=== PATIENT | female | born 2000 ===

== ENCOUNTER 2020-01-23 14:51 | Emergency (ER) | payer OTHER, SELFPAY ==
[2020-01-23 15:05] VITALS: BP 103/56; PULSE 93; RESP 18; TEMP 37; O2SAT 99
--- NOTE | 2020-01-23 15:21 | ED_ITS ---
HPI - Alcohol General Chief Complaint: Toxicology Problem Stated Complaint: Thinks Alcohol Poisoning, Poss Broken Nose Time Seen by Provider: 01/23/20 15:13 Source: patient Mode of arrival: Ambulatory Limitations: no limitations History of Present Illness HPI narrative: 1-year-old female nonsmoker without contributory medical history presents with a chief complaint of nausea epigastric pain and feeling generally unwell since drinking a significant amount alcohol last evening. She has had multiple episodes of vomiting over the course of the day and has been able to keep little down. She denies fever or chills. She has had no change in bowel habits. MD complaint: alcohol intoxication Last drink: hours (ago) Chronic alcohol use: No Previous visits for alcohol intoxication: No Recent trauma: No Associated symptoms: nausea, vomiting and abdominal pain Treatments prior to arrival: none Related Data Allergies Allergy/AdvReac Type Severity Reaction Status Date / Time No Known Drug Allergies Allergy Verified 01/23/20 15:08 Review of Systems Constitutional Constitutional: Denies chills, Denies fatigue, Denies fever(s), Denies frequent falls, Denies lethargy and Denies weakness Eyes Eyes: Denies change in vision, Denies eye discharge, Denies irritation and Denies loss of vision ENT Ears, Nose, Mouth, and Throat: Denies change in voice, Denies dizziness, Denies neck pain, Denies sore throat and Denies throat swelling Cardiovascular Cardiovascular: Denies chest pain, Denies irregular heart rhythm, Denies li ghtheadedness, Denies palpitations, Denies dyspnea, Denies dyspnea on exertion and Denies orthopnea Respiratory Respiratory: Denies cough, Denies dyspnea, Denies dyspnea on exertion and Denies wheezing Gastrointestinal Gastrointestinal: Reports abdominal pain, Denies change in bowel habits, Denies diarrhea, Reports nausea and Reports vomiting Genitourinary Genitourinary: Denies hematuria, Denies flank pain, Denies urinary incontinence and Denies urinary urgency Musculoskeletal Musculoskeletal: Denies back pain, Denies muscle weakness, Denies neck pain, Denies numbness and Denies tingling Integumentary/Breasts Skin/Breast: Denies pruritus, Denies erythema, Denies rash and Denies wounds Neurologic Neurologic: Denies behavioral changes, Denies confusion, Denies dizziness, Denies frequent falls, Denies loss of vision, Denies numbness, Denies tingling and Denies weakness Psychiatric Psychiatric: Denies anxiety, Denies behavioral changes, Denies confusion, Denies depression, Denies homicidal ideation and Denies suicidal ideation Endocrine Endocrine: Denies fatigue, Denies flushing and Denies palpitations Hematologic/Lymphatic Hematologic/Lymphatic: Denies easy bruising Allergic/Immunologic Allergic/Immunologic: Denies urticaria, Denies throat swelling and Denies wheez ing Patient History Social History Smoking Status: Never smoker Smoking Status: Never smoker Exam Narrative Exam Narrative: GENERAL: [19] year old patient appears stated age. Well- nourished, well-developed patient, in mild distress. HEAD: Atraumatic. Normocephalic. EYES: Pupils equal round and reactive. Extraocular motions intact. No scleral icterus. No injection or drainage. ENT: Nose without bleeding, purulent drainage. Throat without erythema, tonsillar hypertrophy or exudate. Airway patent. NECK: Trachea midline. Non tender CARDIOVASCULAR: Regular rate and rhythm without murmurs, gallops, or rubs. RESPIRATORY: Clear to auscultation. Breath sounds equal bilaterally. No wheezes, rales, or rhonchi. GASTROINTESTINAL: Abdomen soft, mild epigastric tenderness, nondistended. EXTREMITIES: No edema or joint tenderness. BACK: Nontender without deformity or crepitance. No flank tenderness. NEURO: AOx3. SKIN: No rash or erythema of visible areas Initial Vital Signs Initial Vital Signs: Vital Signs Temperature 98.6 F 01/23/20 15:05 Pulse Rate 93 H 01/23/20 15:05 Respiratory Rate 18 01/23/20 15:05 Blood Pressure 103/56 L 01/23/20 15:05 Pulse Oximetry 99 01/23/20 15:05 Course Orders Ordered: ED Orders 01/23/20 15:30 Alkaline Phosphatase Stat Aspartate Aminotransferase Stat Basic Metabolic Panel Stat Bilirubin Total Stat Complete Blood Count AUTO DIFF Stat Ethanol (ETOH) Stat Ketones (Beta-Hydroxybutyrate) Stat Lipase Stat 01/23/20 17:48 Basic Metabolic Panel Stat 01/23/20 18:43 Urine Drug Screen, Rapid Stat Ondansetron HCl (Zofran) 4 mg IV Q4HR PRN PRN Reason: Nausea And Vomiting Discontinued Medications Al Hydrox/Mg Hydrox/Simethicone 20 ml/ Lidocaine HCl 15 ml 0 ml PO NOW ONE Stop: 01/23/20 19:22 Last Admin: 01/23/20 19:55 Dose: 35 ml Documented by: GREG Sodium Chloride (Normal Saline 0.9%) 1,000 mls @ 1,000 mls/hr IV BOLUS ONE Stop: 01/23/20 16:20 Last Infusion: 01/23/20 17:26 Dose: 0 mls/hr Documented by: Admin: 01/23/20 16:19 Dose: 1,000 mls/hr Documented by: DREW Ketorolac Tromethamine (Toradol) 15 mg IV NOW ONE Stop: 01/23/20 18:03 Last Admin: 01/23/20 18:07 Dose: 15 mg Documented by: DREW Pantoprazole Sodium (Protonix) 40 mg IV NOW ONE Stop: 01/23/20 15:22 Last Admin: 01/23/20 16:19 Dose: 40 mg Documented by: DREW Vital Signs Vital signs: Vital Signs - 8 hr 01/23/20 15:05 Temperature 98.6 F Pulse Rate 93 H Respiratory Rate 18 Blood Pressure 103/56 L Pulse Oximetry 99 MDM - Alcohol Lab Data Result diagrams: 01/23/20 15:30 01/23/20 17:48 Labs: Lab Results 01/23/20 01/23/20 01/23/20 Range/Units 15:30 15:30 15:30 WBC 9.4 (4.5-11.0) X10^3/uL RBC 5.15 (4.0-5.2) X10^6/uL Hgb 15.7 (12.0-16.0) g/dL Hct 46.3 H (36-46) % MCV 89.9 (80-100) fL MCH 30.4 (26-34) PG MCHC 33.8 (30-36) % RDW 13.2 (11.6-14.8) % Plt Count 203 (150-400) X10^3/uL Neut % (Auto) 78.4 H (50-75) % Lymph % (Auto) 17.5 L (25-40) % [place] % (Auto) 3.8 (3-14) % Eos % (Auto) 0.0 L (2-4) % Baso % (Auto) 0.3 (0-2) % Neut # (Auto) 7400 H (4793-8064) /uL Lymph # (Auto) 1600 (0122-1901) /uL [place] # (Auto) 400 (0-900) /uL Eos # (Auto) 0 (0-450) /uL Baso # (Auto) 0 (0-100) /uL Sodium 141 (137-145) mmol/L Potassium 4.0 (3.4-5.1) mmol/L Chloride 103 (98-107) mmol/L Carbon Dioxide 20 L (22-32) mmol/L BUN 13 (7-17) mg/dL Creatinine 0.60 (0.52-1.04) mg/dL Estimated GFR > 60.0 (>60) mL/min BUN/Creatinine Ratio 21.7 (6-22) Glucose 106 H (70-100) mg/dL Calcium 9.7 (8.4-10.2) mg/dL Total Bilirubin 0.5 (0.2-1.3) mg/dL AST 40 H (14-36) IU/L Alkaline Phosphatase 62 (38-126) U/L Lipase 45 (23-300) U/L U Opiates 300ng/mL cut (Negative) Ur Oxycodone Screen (Negative) Urine Methadone Screen (Negative) Ur Barbiturates Screen (Negative) U Tricyclic Antidepress (Negative) Ur Phencyclidine Scrn (Negative) Ur Amphetamines Screen (Negative) U Methamphetamines Scrn (Negative) Ur MDMA Scrn (Ecstasy) (Negative) U Benzodiazepines Scrn (Negative) Urine Cocaine Screen (Negative) U Marijuana (THC) Screen (Negative) Ethyl Alcohol 18 H ( - 10) mg/dL Ketones (<0.27) mmol/L 01/23/20 01/23/20 01/23/20 Range/Units 15:30 17:48 18:43 WBC (4.5-11.0) X10^3/uL RBC (4.0-5.2) X10^6/uL Hgb (12.0-16.0) g/dL Hct (36-46) % MCV (80-100) fL MCH (26-34) PG MCHC (30-36) % RDW (11.6-14.8) % Plt Count (150-400) X10^3/uL Neut % (Auto) (50-75) % Lymph % (Auto) (25-40) % [place] % (Auto) (3-14) % Eos % (Auto) (2-4) % Baso % (Auto) (0-2) % Neut # (Auto) (3331-7854) /uL Lymph # (Auto) (8991-7732) /uL [place] # (Auto) (0-900) /uL Eos # (Auto) (0-450) /uL Baso # (Auto) (0-100) /uL Sodium 141 (137-145) mmol/L Potassium 4.2 (3.4-5.1) mmol/L Chloride 110 H (98-107) mmol/L Carbon Dioxide 21 L (22-32) mmol/L BUN 13 (7-17) mg/dL Creatinine 0.50 L (0.52-1.04) mg/dL Estimated GFR > 60.0 (>60) mL/min BUN/Creatinine Ratio 26.0 H (6-22) Glucose 92 (70-100) mg/dL Calcium 8.0 L (8.4-10.2) mg/dL Total Bilirubin (0.2-1.3) mg/dL AST (14-36) IU/L Alkaline Phosphatase (38-126) U/L Lipase (23-300) U/L U Opiates 300ng/mL cut Negative (Negative) Ur Oxycodone Screen Negative (Negative) Urine Methadone Screen Negative (Negative) Ur Barbiturates Screen Negative (Negative) U Tricyclic Antidepress Negative (Negative) Ur Phencyclidine Scrn Negative (Negative) Ur Amphetamines Screen Negative (Negative) U Methamphetamines Scrn Negative (Negative) Ur MDMA Scrn (Ecstasy) Negative (Negative) U Benzodiazepines Scrn Negative (Negative) Urine Cocaine Screen Negative (Negative) U Marijuana (THC) Screen Negative (Negative) Ethyl Alcohol ( - 10) mg/dL Ketones 0.32 H (<0.27) mmol/L Point of Care Testing Test Results Negative Urine Dip Bedside Urine Glucose Negative Bedside Urine Bilirubin - Negative Bedside Urine Ketone +++ 80 Urine Specific [place] 1.025 Bedside Urine Occult Blood - Negative Bedside Urine pH 6.5 Bedside Urine Protein +/- 15 Bedside Urine Urobilinogen - Negative Bedside Urine Nitrite - Negative Bedside Urine Leukocytes - Negative Esterase MDM Narrative Medical decision making narrative: 19-year-old female presents feeling unwell after drinking a significant amount of alcohol last night. Pancreatitis and biliary disease considered but thought less likely given lack of laboratory findings. Gastritis considered to be most likely cause of her epigastric pain and improves with Protonix and GI cocktail. Additionally patient has an anion gap acidosis likely a consequence of her heavy alcohol. This greatly improves after 2 L of fluid, 3rd L of fluid makes her feel tremendous relief and she is ready for discharge. She has been given return precautions and understands the plan for discharge. Questions have been answered to her apparent satisfaction. Discharge Plan Departure Patient Disposition: Home Clinical Impression: Alcoholic intoxication Qualifiers: Complication of substance-induced condition: uncomplicated Qualified Code(s): F10.920 - Alcohol use, unspecified with intoxication, uncomplicated Instructions: DI for Alcohol Abuse, DI for Alcohol Poisoning, DI for Alcoholic Gastritis Activity Restrictions/Additional Instructions: *You have been diagnosed with [alcoholic gastritis, alcohol intoxication] *What to do: *Take medications as directed *Follow up with your primary care provider in 2-3 days, call for an appointment. Let them know you were seen in the Emergency Department and that we ask that you be seen in follow up *Return to ER if you should have any new, worsening or concerning symptoms
[2020-01-23 15:36] LABS: Add Manual Diff / Slide Review NO; Basophils Absolute Auto 0 /uL (0-100); Basophils Percent Auto 0.3 % (0-2); Eosinophils Absolute Auto 0 /uL (0-450); Hematocrit 46.3 % (36-46); Hemoglobin 15.7 g/dL (12.0-16.0); Lymphocytes Absolute Auto 1600 /uL (1100-4500); Lymphocytes Percent Auto 17.5 % (25-40); Mean Corpuscular HGB Conc 33.8 % (30-36); Mean Corpuscular Hemoglobin 30.4 PG (26-34); Mean Corpuscular Volume 89.9 fL (80-100); Monocytes Absolute Auto 400 /uL (0-900); Monocytes Percent Auto 3.8 % (3-14); Neutrophils Absolute Auto 7400 /uL (1500-7000); Neutrophils Percent Auto 78.4 % (50-75); Platelet Count 203 X10^3/uL (150-400); Red Blood Cell Count 5.15 X10^6/uL (4.0-5.2); Red Cell Distribution Width 13.2 % (11.6-14.8); White Blood Cell Count 9.4 X10^3/uL (4.5-11.0)
[2020-01-23 15:48] LABS: BUN Creatinine Ratio 21.7 (6-22); Blood Urea Nitrogen 13 mg/dL (7-17); Calcium 9.7 mg/dL (8.4-10.2); Carbon Dioxide 20 mmol/L (22-32); Chloride 103 mmol/L (98-107); Estimated Glomerular Filt Rate > 60.0 mL/min (>60); Ethanol (ETOH) 18 mg/dL; Glucose 106 mg/dL (70-100); HEMOLYSIS < 15 (0-50); Sodium 141 mmol/L (137-145)
[2020-01-23] MEDS: ONDANSETRON 4 MG/2 ML INJ (16:18)
[2020-01-23] MEDS: PANTOPRAZOLE 40 MG VIAL IV (16:19)
[2020-01-23] MEDS: SODIUM CHLORIDE 0.9% 1,000 ML 1000 ML IV (16:19)
[2020-01-23 17:30] LABS: Alkaline Phosphatase 62 U/L (38-126); Aspartate Aminotransferase 40 IU/L (14-36); Bilirubin Total 0.5 mg/dL (0.2-1.3); Lipase 45 U/L (23-300)
[2020-01-23 17:33] LABS: Ketones (Beta-Hydroxybutyrate) 0.32 mmol/L (<0.27)
[2020-01-23 18:04] LABS: Blood Urea Nitrogen 13 mg/dL (7-17); Carbon Dioxide 21 mmol/L (22-32); Chloride 110 mmol/L (98-107); Estimated Glomerular Filt Rate > 60.0 mL/min (>60); Glucose 92 mg/dL (70-100); HEMOLYSIS < 15 (0-50); Potassium 4.2 mmol/L (3.4-5.1); Sodium 141 mmol/L (137-145)
[2020-01-23] MEDS: KETOROLAC 60 MG/2 ML VIAL 15 MG IV (18:07)
[2020-01-23 19:02] LABS: UR Morphine/Opiate cutoff 300 Negative (Negative); Ur Creatinine Normal (Normal); Ur Specific Gravity Normal (Normal); Urine Amphetamines Negative (Negative); Urine Barbiturates Negative (Negative); Urine Benzodiazepines Negative (Negative); Urine Cocaine Negative (Negative); Urine MDMA Negative (Negative); Urine Methadone Negative (Negative); Urine Methamphetamines Negative (Negative); Urine Oxycodone Negative (Negative); Urine Phencyclidine Negative (Negative); Urine Tetrahydrocannabinol Negative (Negative); Urine Tricyclic Antidepressant Negative (Negative); Urine pH Normal (Normal)
[2020-01-23] MEDS: MAG HYDROX/ALUMINUM/SIMETH SUS 20 ML, LIDOCAINE VISCOUS 2% 15 ML PO (19:55)
[2020-01-23 20:55] VITALS: BP 118/76; PULSE 79; RESP 16; TEMP 36.6; O2SAT 99
== END 2020-01-23 20:55 | disposition home or self-care (01) ==
PROVIDERS: Emergency Provider Emergency Medicine
DX: R11.2 Nausea with vomiting, unspecified (principal); R10.13 Epigastric pain; F10.920 Alcohol use, unspecified with intoxication, uncomplicated
CPT/HCPCS: 36415; 80048; 80305; 80320; 81003; 81025; 82009; 82247; 83690; 84075; 84450; 85025; 96361; 96374; 96375; 99284; C9113; J1885; J2405

== ENCOUNTER 2020-09-27 06:14 | Emergency (ER) | payer OTHER, SELFPAY ==
[2020-09-27 06:25] VITALS: BP 116/60; PULSE 119; RESP 18; TEMP 36.4; O2SAT 98; BMI 25.4
[2020-09-27 07:06] LABS: Appearance Urine UA SL CLOUDY; Bilirubin Urine UA NEGATIVE (NEGATIVE); Color Urine UA YELLOW; Glucose Urine UA NEGATIVE (Negative); Ketones Urine UA NEGATIVE (NEGATIVE); Leukocyte Esterase Urine UA TRACE (NEGATIVE); Nitrite Urine UA NEGATIVE (Negative); Occult Blood Urine UA 3+ (Negative); Protein Urine UA TRACE (Negative); Urobilinogen Urine UA 0.2 E.U./dL (0.2)
--- NOTE | 2020-09-27 07:31 | ED_ITS ---
HPI - Female Genitourinary General Chief complaint: Urogenital-Female Stated complaint: Pain in vagina Time Seen by Provider: 09/27/20 06:46 Source: patient Mode of arrival: Ambulatory Limitations: no limitations History of Present Illness HPI Narrative: 20F non smoker with non contributory medical history presents with a painful cut near the bottom of her vaginal opening. She states she had an intimate moment with her significant other and the injury was suffered during digital penetration, likely from a finger nail. She is currently on her menses and denies any abnormal bleeding. She has had no discharge. She denies dysuria, frequency or urgency. This happened a day or 2 ago and she is concerned that she has ongoing pain. She has been putting Aquafor on the wound. She denies nausea, vomiting, abdominal or pelvic pain MD Complaint: pelvic pain Onset (ago): day(s) Location: labia Severity: mild Quality: Burning Duration: constant Relieving factors: none Exacerbating factors: none Patient : No Associated symptoms: denies other symptoms Related Data Allergies Allergy/AdvReac Type Severity Reaction Status Date / Time Penicillins AdvReac Vomiting Verified 09/27/20 06:25 Review of Systems Constitutional Constitutional: Denies chills, Denies fatigue, Denies fever(s), Denies frequent falls, Denies lethargy and Denies weakness Eyes Eyes: Denies change in vision, Denies eye discharge, Denies irritation and Denies loss of vision ENT Ears, Nose, Mouth, and Throat: Denies change in voice, Denies dizziness, Denies neck pain, Denies sore throat and Denies throat swelling Cardiovascular Cardiovascular: Denies chest pain, Denies irregular heart rhythm, Denies lightheadedness, Denies palpitations, Denies dyspnea, Denies dyspnea on exertion and Denies orthopnea Respiratory Respiratory: Denies cough, Denies dyspnea, Denies dyspnea on exertion and Denies wheezing Gastrointestinal Gastrointestinal: Denies abdominal pain, Denies change in bowel habits, Denies diarrhea, Denies nausea and Denies vomiting Genitourinary Comments: genital pain Musculoskeletal Musculoskeletal: Denies neck pain and Denies numbness Integumentary/Breasts Skin/Breast: Denies pruritus, Denies erythema, Denies rash and Denies wounds Neurologic Neurologic: Denies behavioral changes, Denies confusion, Denies dizziness, Denies frequent falls, Denies loss of vision, Denies numbness and Denies weakness Psychiatric Psychiatric: Denies anxiety, Denies behavioral changes, Denies confusion, Denies depression, Denies homicidal ideation and Denies suicidal ideation Endocrine Endocrine: Denies fatigue, Denies flushing and Denies palpitations Hematologic/Lymphatic Hematologic/Lymphatic: Denies easy bruising Allergic/Immunologic Allergic/Immunologic: Denies urticaria, Denies throat swelling and Denies wheezing Patient History alcohol intake frequency: other Substance Use Type: does not use Exam Narrative Exam Narrative: GEN: AOx3 and in mild distress EYES: Pupils are equal, round, and reactive to light and accommodation. Extraoccular muscles are intact bilaterally. There is no subconjunctival hemorrhage or exudate. CHEST: Lungs are clear to auscultation bilaterally and free of wheezes, rales, or rhonchi. Heart rate is regular rhythm, there are no murmurs, clicks, rubs, or gallops. There is no chest wall tenderness. ABD: Abdomen is soft and nontender. There is no guarding or rebound. Bowel sounds are normal in all 4 quadrants. There is no mass or organomegaly. PELVIC: external examination notes a small superficial abrasion at the lower vaginal opening / labia minora. No bleeding or discharge. No depth which would require repair. No sign of infection. EXT: Full painless ROM of all extremities with no loss of sensation or strength. SKIN: Warm, pink, and dry. No erythema or rash Initial Vital Signs Initial Vital Signs: Vital Signs Temperature 97.6 F 09/27/20 06:25 Pulse Rate 119 H 09/27/20 06:25 Respiratory Rate 18 09/27/20 06:25 Blood Pressure 116/60 09/27/20 06:25 Pulse Oximetry 98 09/27/20 06:25 Course Orders Ordered: ED Orders 09/27/20 06:55 UA Complete [Urinalysis and Microscopic] Stat Urine Culture Stat 09/27/20 07:54 Genital Culture Stat Vital Signs Vital signs: Vital Signs - 8 hr 09/27/20 06:25 09/27/20 08:15 Temperature 97.6 F Pulse Rate 119 H 89 Respiratory Rate 18 18 Blood Pressure 116/60 109/61 Pulse Oximetry 98 98 MDM - Female Genitourinary Lab Data Labs: Lab Results 09/27/20 Range/Units 06:55 Urine Color Yellow Urine Appearance Sl cloudy Urine pH 6.0 (4.5-8.0) Ur Specific [place] 1.020 (1.000-1.035) Urine Protein Trace H (Negative) Urine Glucose (UA) Negative (Negative) g/dL Urine Ketones Negative (NEGATIVE) Urine Occult Blood 3+ H (Negative) Urine Nitrate Negative (Negative) Urine Bilirubin Negative (NEGATIVE) Urine Urobilinogen 0.2 (0.2) E.U./dL Ur Leukocyte Esterase Trace H (NEGATIVE) Urine RBC >100/hpf H (0-5/HPF) Urine WBC 5-10/hpf H (0-5/HPF) Ur Squamous Epith Cells 1-5 /hpf (0-5/HPF) Urine Bacteria Moderate (10-30) H (None) Urine Mucus 1+ H (Negative) Ur Culture Indicated? Specimen cultured Point of Care Testing Test Results Negative Discharge Plan Departure Patient Disposition: Home Clinical Impression: Abrasion of vagina Qualifiers: Encounter type: initial encounter Qualified Code(s): S30.814A - Abrasion of vagina and vulva, initial encounter Discharge Date/Time: 09/27/20 08:17 Instructions: DI for Abrasion Activity Restrictions/Additional Instructions: *You have been diagnosed with [ superficial vaginal abrasion. No indication of infection or need for sutures or repair.] *What to do: *Take medications as directed: Continue using the aquafor as we discussed. *Follow up with your primary care provider in 2-3 days, call for an appointment. Let them know you were seen in the Emergency Department and that we ask that you be seen in follow up *Return to ER if you should have any new, worsening or concerning symptoms, such as [ increased pain, swelling, redness, fever or other bothersome symptoms]
[2020-09-27 07:35] LABS: Bacteria Urine Moderate (10-30); Culture Indicated Urine Specimen Cultured; Mucus Urine 1+ (Negative); RBC Urine >100/HPF (0-5/HPF); Squamous Epithelial Cell Urine 1-5 /HPF (0-5/HPF); WBC Urine 5-10/HPF (0-5/HPF)
[2020-09-27 08:15] VITALS: BP 109/61; PULSE 89; RESP 18; O2SAT 98
== END 2020-09-27 08:17 | disposition home or self-care (01) ==
PROVIDERS: Emergency Provider Emergency Medicine
DX: S30.814A Abrasion of vagina and vulva, initial encounter (principal)
CPT/HCPCS: 81001; 81025; 87070; 87077; 87086; 87147; 87205; 99282